=== PATIENT | male | born 1980 | race Hispanic/Latino ===

== ENCOUNTER 2022-12-18 06:46 | Observation (INO) | payer SELFPAY ==
[2022-12-18] MEDS ORDERED: METOPROLOL TAR 50 MG TAB ONE (07:47)
[2022-12-18] MEDS ORDERED: LORazepam 2 MG/ML VIAL ONE (07:48)
[2022-12-18] MEDS ORDERED: ASPIRIN 81 MG CHEWABLE TABLET ONE (07:48)
[2022-12-18] MEDS ORDERED: ONDANSETRON 4 MG/2 ML VIAL ONE (07:49)
[2022-12-18] MEDS ORDERED: NA CHLORIDE 0.9% 1,000 ML ONE (07:49)
[2022-12-18] MEDS ORDERED: MORPHINE 2 MG/ML SYR ONE (07:49)
--- NOTE | 2022-12-18 08:11 | RAD REPORT ---
EXAM DESCRIPTION: RAD - Chest Single View - 12/18/2022 7:57 am CLINICAL HISTORY: CHEST PAIN COMPARISON: No comparisons FINDINGS: Lines: None. Lungs: No evidence of edema or pneumonia. Pleural: No significant pleural effusions or pneumothorax. Cardiac: The heart size is within normal limits. Mediastinum: Within normal limits. Bones: No acute fractures. Other: None IMPRESSION: No acute cardiopulmonary disease.
[2022-12-18] MEDS ORDERED: ENOXAPARIN 80 MG/0.8 ML SQ ONE (08:39)
[2022-12-18 08:55] LABS: Absolute Lymphocytes (CBC) 0.5 K/uL (0.7-4.9); Hematocrit 50.3 % (39.6-49.0); Lymphocytes % 8.7 % (15.3-44.8); MCV 92.5 fL (80-100); MPV 7.2 fL (7.6-11.3); RBC Red Blood Cell Count 5.44 M/uL (4.33-5.43)
[2022-12-18 09:13] LABS: Urine Blood Trace-intact (Negative); Urine Glucose Negative (Negative); Urine Protein Negative (Negative)
[2022-12-18 09:20] LABS: ALT/SGPT 45 U/L (16-61); AST/SGOT 31 U/L (15-37); Albumin 3.3 g/dL (3.4-5.0); Alkaline Phosphatase 37 U/L (45-117); BUN Blood Urea Nitrogen 15 mg/dL (7-18); Bicarbonate 29 mmol/L (21-32); Bilirubin Direct 0.3 mg/dL (0-0.2); Bilirubin Total 1.1 mg/dL (0.2-1.0); Glomerular Filtration Rate 113 ml/min (=/>90); Glucose Level 100 mg/dL (74-106); Magnesium 2.1 mg/dL (1.6-2.4); NT PRO-BNP 22 pg/mL (<125); Potassium 4.3 mmol/L (3.5-5.1); Protein, Total 6.2 g/dL (6.4-8.2); Protime INR 1.05; Sodium Level 137 mmol/L (136-145); Troponin High Sensitivity 10.8 pg/mL (<58.9)
[2022-12-18 09:20] LABS: SARS-CoV-2 Antigen Rapid Res Negative (Negative)
[2022-12-18 10:08] LABS: Barbiturates NEGATIVE (NEGATIVE); Benzodiazepines NEGATIVE (NEGATIVE); Cocaine NEGATIVE (NEGATIVE); METHAMPHETAM POSITIVE (NEGATIVE); Methadone NEGATIVE (NEGATIVE); Opiates NEGATIVE (NEGATIVE); Phencyclidine NEGATIVE (NEGATIVE); THC Cannibis NEGATIVE (NEGATIVE)
--- NOTE | 2022-12-18 10:57 | EDPHYS ---
Physician Documentation [facility] Name: Fidel Santos Age: 42 yrs Sex: Male : 1980 Arrival Date: 12/18/2022 Time: 06:47 Bed 16 Private MD: ED Physician Robinson Carvalho HPI: 12/18 08:15 This 42 yrs old Male presents to ER via Ambulatory with complaints of Chest day Pain. 08:15 The patient or guardian reports chest pain that is located primarily in the anterior day chest wall, left. Onset: last night. The pain does not radiate. Associated signs and symptoms: Pertinent positives: shortness of breath. The chest pain is described as sharp. Duration: The patient or guardian reports multiple episodes, with no pattern. Modifying factors: The symptoms are alleviated by remaining still, the symptoms are aggravated by nothing. Severity of pain: At its worst the pain was moderate in the emergency department the pain is unchanged. The patient has not experienced similar symptoms in the past. Historical: - Allergies: 07:04 No Known Allergies; bb - Home Meds: 07:04 None [Active]; bb - PMHx: 07:04 None; bb - PSHx: 07:04 None; bb - Immunization history:: Client reports having NOT received the Covid vaccine. - Social history:: Smoking status: Patient denies any tobacco usage or history of. Patient uses street drugs, Methamphetamine (Meth). - Family history:: not pertinent. ROS: 08:15 Constitutional: Negative for fever, chills, and weight loss, Eyes: Negative for injury, day pain, redness, and discharge, ENT: Negative for injury, pain, and discharge, Neck: Negative for injury, pain, and swelling, Respiratory: Negative for shortness of breath, cough, wheezing, and pleuritic chest pain, Abdomen/GI: Negative for abdominal pain, nausea, vomiting, diarrhea, and constipation, Back: Negative for injury and pain, : Negative for injury, bleeding, discharge, and swelling, MS/Extremity: Negative for injury and deformity, Skin: Negative for injury, rash, and discoloration, Neuro: Negative for headache, weakness, numbness, tingling, and seizure, Psych: Negative for depression, anxiety, suicide ideation, homicidal ideation, and hallucinations, Allergy/Immunology: Negative for hives, rash, and allergies, Endocrine: Negative for neck swelling, polydipsia, polyuria, polyphagia, and marked weight changes, Hematologic/Lymphatic: Negative for swollen nodes, abnormal bleeding, and unusual bruising. 08:15 Cardiovascular: Positive for chest pain, of the anterior aspect of left upper chest and left breast. Exam: 08:15 Constitutional: This is a well developed, well nourished patient who is awake, alert, day and in no acute distress. Head/Face: Normocephalic, atraumatic. Eyes: Pupils equal round and reactive to light, extra-ocular motions intact. Lids and lashes normal. Conjunctiva and sclera are non-icteric and not injected. Cornea within normal limits. Periorbital areas with no swelling, redness, or edema. ENT: Nares patent. No nasal discharge, no septal abnormalities noted. Tympanic membranes are normal and external auditory canals are clear. Oropharynx with no redness, swelling, or masses, exudates, or evidence of obstruction, uvula midline. Mucous membranes moist. Neck: Trachea midline, no thyromegaly or masses palpated, and no cervical lymphadenopathy. Supple, full range of motion without nuchal rigidity, or vertebral point tenderness. No Meningismus. Chest/axilla: Normal chest wall appearance and motion. Nontender with no deformity. No lesions are appreciated. Respiratory: Lungs have equal breath sounds bilaterally, clear to auscultation and percussion. No rales, rhonchi or wheezes noted. No increased work of breathing, no retractions or nasal flaring. Abdomen/GI: Soft, non-tender, with normal bowel sounds. No distension or tympany. No guarding or rebound. No evidence of tenderness throughout. Back: No spinal tenderness. No costovertebral tenderness. Full range of motion. Male : Normal genitalia with no discharge or lesions. Skin: Warm, dry with normal turgor. Normal color with no rashes, no lesions, and no evidence of cellulitis. MS/ Extremity: Pulses equal, no cyanosis. Neurovascular intact. Full, normal range of motion. Neuro: Awake and alert, GCS 15, oriented to person, place, time, and situation. Cranial nerves II-XII grossly intact. Motor strength 5/5 in all extremities. Sensory grossly intact. Cerebellar exam normal. Normal gait. Psych: Awake, alert, with orientation to person, place and time. Behavior, mood, and affect are within normal limits. 08:15 Cardiovascular: Rate: tachycardic, actual rate is 110 bpm, Rhythm: regular, Pulses: Pulses are 4+ in bilateral radial, brachial, femoral, popliteal, posterior tibial and and dorsalis pedis arteries.. Heart sounds: normal, Edema: is not appreciated, JVD: is not appreciated. 08:15 ECG was reviewed by the Attending Physician. 08:48 ECG was reviewed by the Attending Physician. day 10:57 ECG was reviewed by the Attending Physician. day Vital Signs: 07:00 BP 126 / 83; Pulse 115; Resp 14 S; Temp 98.2(O); Pulse Ox 94% on R/A; Weight 72.57 kg bb (R); Height 5 ft. 5 in. (165.10 cm) (R); Pain 3/10; 07:58 BP 146 / 88; Pulse 110; Pulse Ox 94% on R/A; ap3 10:00 BP 141 / 96; Pulse 86; Pulse Ox 96% ; ap3 11:19 BP 150 / 109; Pulse 92; Resp 18; Pulse Ox 95% on R/A; ap3 12:58 BP 146 / 93; Pulse 86; Resp 18; Pulse Ox 97% on R/A; Pain 0/10; ld1 07:00 Body Mass Index 26.63 (72.57 kg, 165.10 cm) bb MDM: 07:10 Patient medically screened. day 08:18 Differential diagnosis: abnormal EKG, acute myocardial infarction, acute pericarditis, day anxiety, coronary artery disease chest wall pain, Cholelithiasis esophagitis, gastritis, hiatal hernia, pancreatitis, pleurisy, pneumonia, pneumothorax, pulmonary embolus, stable angina, thoracic aortic disection, unstable angina. HEART Score: History: Slightly Suspicious (0), ECG: Non specific repolarization disturbance / LBTB / PM (1), Age: < or = 45 years (0), Risk Factors: 1 or 2 risk factors (1), [+ Family HX] Troponin: < or = 1 x Normal Limit (0). The patient was given aspirin in the Emergency Department. LANDON Risk Score: TOTAL SCORE = 0. Data reviewed: vital signs, nurses notes, lab test result(s), EKG, radiologic studies, plain films. Consideration of Admission/Observation Patient was admitted/placed on observation. Management of patient was discussed with the following: Hospitalist: robbin mejia. Independent interpretation of the following test(s) in the Emergency Department EKG: See my EKG interpretation above Rhythm Strip Interpretation Rate: 105, sinus tachyBPM. Test considered but Not performed: CT: ct chest ro pe. 12/18 07:34 Order name: Basic Metabolic Panel [facility] 12/18 07:34 Order name: CBC with Diff [facility] 12/18 07:34 Order name: LFT's [facility] 12/18 07:34 Order name: Magnesium [facility] 12/18 07:34 Order name: NT PRO-BNP day 12/18 07:34 Order name: PT-INR [facility] 12/18 07:34 Order name: Troponin HS [facility] 12/18 07:34 Order name: Acetaminophen [facility] 12/18 07:34 Order name: ETOH Level [facility] 12/18 07:34 Order name: Ptt, Activated [facility] 12/18 07:34 Order name: Salicylate [facility] 12/18 07:34 Order name: Urine Drug Screen [facility] 12/18 08:20 Order name: D-Dimer [facility] 12/18 08:21 Order name: SARS RAPID [facility] 12/18 09:03 Order name: CBC with Automated Diff; Complete Time: 09:30 EDMS 12/18 09:13 Order name: Urine Dipstick-Ancillary; Complete Time: 09:30 EDMS 12/18 09:14 Order name: D-Dimer; Complete Time: 09:30 EDMS 12/18 09:20 Order name: Protime (+INR); Complete Time: 09:30 EDMS 12/18 09:20 Order name: PTT, Activated Partial Thromb; Complete Time: 09:30 EDMS 12/18 09:20 Order name: SARS-COV-2 Antigen Rapid; Complete Time: 09:30 EDMS 12/18 09:21 Order name: Basic Metabolic Panel; Complete Time: 09:59 EDMS 12/18 09:21 Order name: Liver (Hepatic) Function; Complete Time: 09:59 EDMS 12/18 09:21 Order name: Troponin High Sensitivity; Complete Time: 09:59 EDMS 12/18 09:21 Order name: NT PRO-BNP; Complete Time: 09:59 EDMS 12/18 09:21 Order name: Magnesium; Complete Time: 09:59 EDMS 12/18 09:45 Order name: Troponin High Sensitivity: [address] [facility] 12/18 09:51 Order name: Salicylates Level; Complete Time: 09:59 [facility] 12/18 09:53 Order name: Alcohol Serum/Plasma; Complete Time: 09:59 [facility] 12/18 09:54 Order name: Acetaminophen Level; Complete Time: 09:59 [facility] 12/18 10:08 Order name: Urine Drug Screen; Complete Time: 10:24 [facility] 12/18 07:34 Order name: XRAY Chest (1 view) [facility] 12/18 07:34 Order name: EKG; Complete Time: 07:36 [facility] 12/18 07:34 Order name: Cardiac monitoring; Complete Time: 07:35 [facility] 12/18 07:34 Order name: EKG - Nurse/Tech; Complete Time: 07:35 [facility] 12/18 07:34 Order name: IV Saline Lock; Complete Time: 07:35 [facility] 12/18 07:34 Order name: Labs collected and sent; Complete Time: 07:56 [facility] 12/18 07:34 Order name: O2 Per Protocol; Complete Time: 07:35 [facility] 12/18 07:34 Order name: O2 Sat Monitoring; Complete Time: 07:35 [facility] 12/18 07:34 Order name: Suicide Screening ([place]); Complete Time: 07:56 [facility] 12/18 07:34 Order name: Urine Dipstick-Ancillary (obtain specimen); Complete Time: 09:23 [facility] 12/18 07:59 Order name: Labs - recollect needed: all labs; Complete Time: 08:37 [facility] 12/18 08:12 Order name: RAD; Complete Time: 08:14 [facility] 12/18 10:55 Order name: EKG; Complete Time: 10:56 [facility] 12/18 10:55 Order name: EKG - Nurse/Tech; Complete Time: 11:03 [facility] 12/18 11:01 Order name: Troponin High Sensitivity; Complete Time: 11:10 [facility] 12/18 12:55 Order name: Hemoglobin A1c EDMS EC:15 Rate is 109 beats/min. Rhythm is regular. QRS [place] is Normal. ID interval is normal. day QRS interval is normal. QT interval is normal. No Q waves. T waves are Normal. No ST changes noted. Clinical impression: NSR w/ Non-specific ST/T Changes and No evidence of ischemia. Interpreted by me. Reviewed by me. 08:48 Rate is 116 beats/min. Rhythm is regular. QRS [place] is Normal. ID interval is normal. day QRS interval is normal. QT interval is normal. No Q waves. T waves are Normal. No ST changes noted. Clinical impression: Sinus tachycardia and No evidence of ischemia. Interpreted by me. Reviewed by me. 10:57 Rate is 91 beats/min. Rhythm is regular. QRS [place] is Normal. ID interval is normal. QRS day interval is normal. QT interval is normal. No Q waves. T waves are Normal. T waves are Peaked. No ST changes noted. Clinical impression: NSR w/ Non-specific ST/T Changes. Interpreted by me. Reviewed by me. Administered Medications: 07:50 Drug: NS 0.9% 1000 ml Route: IV; Rate: 1 bolus; Site: right antecubital; ap3 07:55 Drug: Aspirin Chewable Tablet 324 mg Route: PO; ap3 07:55 Drug: Ativan (LORazepam) 1 mg Route: IVP; Site: right antecubital; ap3 07:55 Drug: morphine 2 mg Route: IVP; Infused Over: 4 mins; Site: right antecubital; ap3 07:55 Drug: Zofran (Ondansetron) 4 mg Route: IVP; Site: right antecubital; ap3 07:58 Drug: Lopressor (metoprolol TARTRATE) 50 mg Route: PO; ap3 09:59 Not Given (Duplicate Order): Lovenox (enoxaparin) 70 mg Sub-Q once day 11:41 Drug: Lovenox (enoxaparin) 70 mg Route: Sub-Q; Site: abdomen; ld1 Disposition Summary: 12/18/22 10:56 Hospitalization Ordered Hospitalization Status: Observation day Provider: David Williamson cha Location: Telemetry/MedSurg (observation)(12/18/22 10:56) day Condition: Fair(12/18/22 10:56) day Problem: new(12/18/22 10:56) day Symptoms: have improved(12/18/22 10:56) day Bed/Room Type: Standard day Room Assignment: day Diagnosis - Chest pain, unspecified(12/18/22 10:56) day - Tachycardia, unspecified(12/18/22 10:56) day - Essential (primary) hypertension day - Adverse effect of amphetamines(12/18/22 10:56) day Forms: - Medication Reconciliation Form day - SBAR form day Signatures: Dispatcher [employer] Robinson Mccarty MD MD cha Ballard, Brenda RN RN Virginia Grijalva RN RN ap3 Shasha Carter RN RN ld1 Nina Jessica RN RN kc6 Corrections: (The following items were deleted from the chart) 10:55 10:55 Home day day 10:55 10:55 new day day 10:55 10:55 have improved day day 10:55 10:55 Stable day day 10:55 10:55 Chest pain, unspecified day day 10:55 10:55 Tachycardia, unspecified day day 10:55 10:55 Adverse effect of amphetamines day day 10:55 10:55 Abuse of other non-psychoactive substances - Methamphetamines day day
--- NOTE | 2022-12-18 10:57 | ER ---
Nurse's Notes [facility] Name: Fidel Santos Age: 42 yrs Sex: Male : 1980 Arrival Date: 12/18/2022 Time: 06:47 Bed 16 Private MD: Diagnosis: Chest pain, unspecified;Tachycardia, unspecified;Essential (primary) hypertension;Adverse effect of amphetamines Presentation: 12/18 07:00 Chief complaint: Patient states: he woke up this morning with chest pain 10/10 now it bb is 3/10 he also did some meth he came across a few days ago. Coronavirus screen: At this time, the client does not indicate any symptoms associated with coronavirus-19. Ebola Screen: No symptoms or risks identified at this time. Initial Sepsis Screen: Does the patient meet any 2 criteria? No. Patient's initial sepsis screen is negative. Does the patient have a suspected source of infection? No. Patient's initial sepsis screen is negative. Risk Assessment: Do you want to hurt yourself or someone else? Patient reports no desire to harm self or others. Onset of symptoms was December 18, 2022. 07:00 Method Of Arrival: Ambulatory bb 07:00 Acuity: NEHEMIAH 3 bb Historical: - Allergies: 07:04 No Known Allergies; bb - Home Meds: 07:04 None [Active]; bb - PMHx: 07:04 None; bb - PSHx: 07:04 None; bb - Immunization history:: Client reports having NOT received the Covid vaccine. - Social history:: Smoking status: Patient denies any tobacco usage or history of. Patient uses street drugs, Methamphetamine (Meth). - Family history:: not pertinent. Screenin:27 [facility] ED Fall Risk Assessment (Adult) History of falling in the last 3 months, ap3 including since admission No falls in past 3 months (0 pts). Abuse screen: Denies threats or abuse. Nutritional screening: No deficits noted. Tuberculosis screening: No symptoms or risk factors identified. Assessment: 07:27 General: Appears in no apparent distress. Behavior is calm, cooperative. Pain: Pain ap3 does not radiate. Pain began suddenly. Neuro: Level of Consciousness is awake, alert, obeys commands, Oriented to person, place, time, situation, Appropriate for age Gait is steady, Speech is normal. Cardiovascular: Patient's skin is warm and dry. Respiratory: Airway is patent Respiratory effort is even, unlabored, Respiratory pattern is regular, symmetrical. 07:54 Reassessment: spoke with Tamiko from outside lab. stated she needs a recollect on kc6 all labs. AGNIESZKA Morrison notified. 12:58 Reassessment: Patient is alert, oriented x 3, equal unlabored respirations, skin ld1 warm/dry/pink. Pt came out of room - requested to sign out. Educated patient on need for observation stay - pt decided to D/C own IV \\T\\ signed out AMA at this time. Notified ERP. Pt states "I feel much better, I am ready to leave.". Neuro: Level of Consciousness is awake, alert, obeys commands, Oriented to person, place, time, situation, Appropriate for age. Cardiovascular: Capillary refill < 3 seconds Patient's skin is warm and dry. Rhythm is sinus rhythm. Vital Signs: 07:00 BP 126 / 83; Pulse 115; Resp 14 S; Temp 98.2(O); Pulse Ox 94% on R/A; Weight 72.57 kg bb (R); Height 5 ft. 5 in. (165.10 cm) (R); Pain 3/10; 07:58 BP 146 / 88; Pulse 110; Pulse Ox 94% on R/A; ap3 10:00 BP 141 / 96; Pulse 86; Pulse Ox 96% ; ap3 11:19 BP 150 / 109; Pulse 92; Resp 18; Pulse Ox 95% on R/A; ap3 12:58 BP 146 / 93; Pulse 86; Resp 18; Pulse Ox 97% on R/A; Pain 0/10; ld1 07:00 Body Mass Index 26.63 (72.57 kg, 165.10 cm) bb ED Course: 06:47 Patient arrived in ED. [id number] 07:04 Triage completed. bb 07:04 Arm band placed on Patient placed in an exam room, on a stretcher, on pulse oximetry. bb EKG completed in triage. Results shown to . 07:05 Inserted saline lock: 20 gauge in right antecubital area, using aseptic technique. bc6 07:10 Robinson Carvalho MD is Attending Physician. day 07:26 Virginia Holman, RN is Primary Nurse. ap3 07:27 EKG done, by ED staff, reviewed by Robinson Carvalho MD. ap3 07:27 Patient maintains SpO2 saturation greater than 95% on room air. ap3 07:27 Patient has correct armband on for positive identification. Bed in low position. Call ap3 light in reach. Side rails up X 1. compactor driver on. Pulse ox on. NIBP on. Door closed. Noise minimized. 08:37 D-Dimer Sent. ap3 08:37 SARS RAPID Sent. ap3 10:56 David Williamson is Hospitalizing Provider. day 12:58 No provider procedures requiring assistance completed. Pt d/c own IV. Placed pressure ld1 dressing on IV site prior to leaving. Administered Medications: 07:50 Drug: NS 0.9% 1000 ml Route: IV; Rate: 1 bolus; Site: right antecubital; ap3 07:55 Drug: Aspirin Chewable Tablet 324 mg Route: PO; ap3 07:55 Drug: Ativan (LORazepam) 1 mg Route: IVP; Site: right antecubital; ap3 07:55 Drug: morphine 2 mg Route: IVP; Infused Over: 4 mins; Site: right antecubital; ap3 07:55 Drug: Zofran (Ondansetron) 4 mg Route: IVP; Site: right antecubital; ap3 07:58 Drug: Lopressor (metoprolol TARTRATE) 50 mg Route: PO; ap3 09:59 Not Given (Duplicate Order): Lovenox (enoxaparin) 70 mg Sub-Q once day 11:41 Drug: Lovenox (enoxaparin) 70 mg Route: Sub-Q; Site: abdomen; ld1 Medication: 07:28 VIS not applicable for this client. ap3 Outcome: 10:55 Discharge ordered by . day 10:56 Decision to Hospitalize by Provider. day 12:58 AMA AMA form signed ld1 12:58 Condition: unchanged 12:58 Instructed on the need for admit. 13:01 Patient left the ED. ld1 Signatures: Robinson Carvalho MD MD cha Ballard, Brenda, RN RN Virginia Grijalva RN RN ap3 Shasha Carter RN RN ld1 Caroline Nolasco6 Nina Jessica RN RN kc6 Marysol Garcia bc6 Corrections: (The following items were deleted from the chart) 13:01 12:58 Reassessment: Patient is alert, oriented x 3, equal unlabored respirations, skin ld1 warm/dry/pink. Pt came out of room - requested to sign out. Educated patient on need for observation stay - pt decided to D/C own IV \\T\\ signed out AMA at this time. Notified ERP ld1
[2022-12-18] MEDS ORDERED: ACETAMINOPHEN 325 MG TABLET PO PRN (11:42)
[2022-12-18] MEDS ORDERED: HYDROCODONE/APAP 5/325 MG TAB PO PRN (11:45)
[2022-12-18] MEDS ORDERED: ONDANSETRON 4 MG/2 ML VIAL IV PRN (11:49)
--- NOTE | 2022-12-18 12:05 | P.HP ---
Certification for Inpatient Patient admitted to: Observation With expected LOS: <2 Midnights Patient will require the following post-hospital care: None Practitioner: I am a practitioner with admitting privileges, knowledge of patient current condition, hospital course, and medical plan of care. Services: Services provided to patient in accordance with Admission requirements found in Title 42 Section 412.3 of the Code of Federal Regulations Patient History Date of Service: 12/18/22 Reason for admission: Chest pain History of Present Illness: Patient is a 42-year-old with a past medical history significant for significant for anxiety disorder, methamphetamine use who presents with complaint of chest pain that woke him up this morning. Patient reported that chest pain is located in the left chest wall. Patient rated pain as 10/10 in severity and described pain as burning in quality. Patient reported associated signs and symptoms of dizziness and headache. Patient denies any other signs and symptoms. Symptoms are aggravated or relieved by nothing. Patient decided to present to the hospital for medical evaluation. Of note, patient reported that he used methamphetamine in the last 2 days. Allergies No Known Allergies Allergy (Unverified 12/18/22 11:49) - Past Medical/Surgical History -: Anxiety disorder -: Methamphetamine use Past Surgical History: Reviewed- Non-Contributory - Family History Father -: Heart disease, Hypertension, Diabetes Mother -: Diabetes, Other (see notes) (Alzheimer's disease) - Social History Smoking Status: Never smoker Alcohol use: Yes CD- Drugs: Yes Caffeine use: Yes Place of Residence: Home Review of Systems General: Unremarkable Eyes: Unremarkable ENT: Unremarkable Respiratory: Unremarkable Cardiovascular: Chest Pain Gastrointestinal: Unremarkable Genitourinary: Unremarkable Musculoskeletal: Unremarkable Integumentary: Unremarkable Neurological: Other (Headache, dizziness) Lymphatics: Unremarkable Physical Examination - Physical Exam General: Alert, In no apparent distress, Oriented x3, Cooperative HEENT: Atraumatic, PERRLA, Mucous membr. moist/pink, EOMI, Sclerae nonicteric Neck: Supple, 2+ carotid pulse no bruit, No LAD, Without JVD or thyroid abnormality Respiratory: Clear to auscultation bilaterally, Normal air movement Cardiovascular: No edema, Normal S1 S2, No murmurs Capillary refill: <2 Seconds Gastrointestinal: Normal bowel sounds, Soft and benign, No tenderness Musculoskeletal: No clubbing, No swelling, No tenderness Integumentary: No rashes, No breakdown, No tenderness/swelling Neurological: Normal speech, Normal tone, Normal affect Lymphatics: No axilla or inguinal lymphadenopathy - Studies Laboratory Data (last 24 hrs) 12/18/22 08:35: PT 11.5, INR 1.05, APTT 24.9 12/18/22 08:35: WBC 5.60, Hgb 17.1, Hct 50.3 H, Plt Count 270 12/18/22 08:35: Sodium 137, Potassium 4.3, BUN 15, Creatinine 0.78, Glucose 100, Magnesium 2.1, Total Bilirubin 1.1 H, AST 31, ALT 45, Alkaline Phosphatase 37 L Assessment and Plan - Plan -- Chest pain. Likely atypical. Serial troponins negative so far. Cardiology consulted. Echocardiogram pending to assess cardiac structures and function. Telemetry to monitor for any significant arrhythmia. We will await further recommendation from pmo manager. --Anxiety disorder. Ativan as needed. --Tachycardia. Patient medicated with metoprolol. Echocardiogram pending to assess cardiac structures and functions. Telemetry to monitor for any significant arrhythmia. --Methamphetamine use. Patient counseled on drug cessation. Continue supportive care. -- DVT prophylaxis with Lovenox subQ. Discharge Plan: Home Plan to discharge in: 48 Hours - Advance Directives Does patient have a Living Will: No Does patient have a Durable POA for Healthcare: No - Code Status/Comfort Care Code Status Assessed: Yes Physician Review: Patient Assessed, Agree with Above Assessment and Plan Critical Care: No
[2022-12-18 13:16] VITALS: TEMP 98.2
[2022-12-18 13:20] VITALS: BP 146/93; O2SAT 97
--- NOTE | 2022-12-18 15:20 | EKG ---
Test Date: 2022-12-18 Test Time: 07:23:54 Wet Process Technician: ALP MEASUREMENT RESULTS: Intervals: Rate: 109 HI: 132 QRSD: 80 QT: 330 QTc: 444 [place]: P: 40 HI: 132 QRS: 31 T: 32 INTERPRETIVE STATEMENTS: Sinus tachycardia Otherwise normal ECG Compared to ECG 12/18/2022 06:58:06 No significant changes Electronically Signed On 12-18-22 15:19:09 INTERNAL SALES ENGINEER by Abdirashid Carias
--- NOTE | 2022-12-18 15:20 | EKG ---
Test Date: 2022-12-18 Test Time: 06:58:06 Doctor Of Naturopathic Medicine: TIFFANY MEASUREMENT RESULTS: Intervals: Rate: 116 VT: 128 QRSD: 78 QT: 324 QTc: 450 [place]: P: 42 VT: 128 QRS: 43 T: 50 INTERPRETIVE STATEMENTS: Sinus tachycardia Otherwise normal ECG No previous ECG available for comparison Electronically Signed On 12-18-22 15:19:10 TROLLEY CAR OPERATOR by Abdirashid Carias
[2022-12-18] MEDS ORDERED: ENOXAPARIN 40 MG/0.4 ML SQ SCH (17:00)
[2022-12-19] MEDS ORDERED: ASPIRIN 81 MG CHEWABLE TABLET PO SCH (09:00)
--- NOTE | 2022-12-20 13:24 | EKG ---
Test Date: 2022-12-18 Test Time: 10:49:14 Staple Laster: RAEGAN MEASUREMENT RESULTS: Intervals: Rate: 91 DE: 136 QRSD: 100 QT: 338 QTc: [address] [place]: P: DE: 136 QRS: 206 T: 180 INTERPRETIVE STATEMENTS: Normal sinus rhythm Right superior axis deviation Nonspecific ST and T wave abnormality Abnormal ECG Compared to ECG 12/18/2022 07:23:54 Right superior axis now present ST (T wave) deviation now present Sinus tachycardia no longer present Electronically Signed On 12-20-22 13:19:22 [employer] by Abdirashid Carias
== END 2022-12-18 13:02 | disposition left against medical advice (07) ==
LOC: ER 06:46 → ERHOLD 11:39
PROVIDERS: ADMIT Internal Medicine; ATTEND Internal Medicine
DX: R07.9 Chest pain, unspecified (principal); R00.0 Tachycardia, unspecified; F15.90 Other stimulant use, unspecified, uncomplicated; F41.9 Anxiety disorder, unspecified; R51.9 Headache, unspecified; R42 Dizziness and giddiness; I10 Essential (primary) hypertension; Z71.51 Drug abuse counseling and surveillance of drug abuser; Z20.822 Contact with and (suspected) exposure to COVID-19
CPT/HCPCS: 36415; 71045; 80048; 80061; 80076; 80307; 81003; 83036; 83735; 83880; 84484; 85025; 85379; 85610; 85730; 87811; 93005; 96372; 96374; 96375; 99285; G0378; G0480; J1650; J2270; J2405; J7030

== ENCOUNTER 2023-05-28 20:58 | Emergency (ER) | payer SELFPAY ==
--- OUTSIDE RECORDS SUMMARY | 2023-05-28 21:02 | XMS REPORT | Continuity of Care Document ---
:1980 Author Organization [facility] t Address [address] [place] [address] Care Team Providers Name Role Phone Yin Citlali AARON Attending Clinician Unavailable Ginny Rivera MD Attending Clinician GINNY RIVERA Attending Clinician Unavailable CARROL RIDLEY Attending Clinician Unavailable GINNY RIVERA Admitting Clinician Unavailable Problems Condition Condition Condition Status Onset Resolution Last Treating Co mments Source Name Details Category Date Date Treatment Clinician Date STEMI (ST STEMI (ST Disease Recurre [facility] elevation elevation nce 03-03 [facility] myocardial myocardial 00:00: Me dical infarction infarction 00 Ce nter ) ) Allergies, Adverse Reactions, Alerts Allergy Allergy Status Severity Reaction(s) Onset Inactive Treating Comm ents Source Name Type Date Date Clinician NO KNOWN Allergy Active [facility] Social History Social Habit Start Date Stop Date Quantity Comments Source Sex Assigned At [address] [facility] Medications Ordered Filled Start Stop Current Ordering Indication Dosage Frequency Signature Comments Components Source Medication Medication Date Date Medication? Clinician (SIG) Name Name amLODIPine 2023- Yes 5mg QD Take [address] [facility] (NORVASC) 5 03-04 tablet (5 Diana kes MG tablet 00:00: 23:59 mg total) Me dical 00 :00 by mouth Center in the morning. atorvastati 2023- Yes 40mg QD Take [address] [facility] n (LIPITOR) 03-04 tablet (40 L ukes 40 MG 00:00: 23:59 mg total) Medica l tablet 00 :00 by mouth Center in the morning. aspirin 81 2023- Yes 81mg QD Take [address] [facility] [address] [facility] EC 03-04 tablet (81 [facility] tablet 00:00: 23:59 mg total) Medic al 00 :00 by mouth Center in the morning. clopidogreL 2023- Yes 75mg QD Take [address] [facility] (PLAVIX) 75 03-04 tablet (75 L ukes mg tablet 00:00: 23:59 mg total) Me dical 00 :00 by mouth Center in the morning. . Vital Signs Vital Name Observation Time Observation Value Comments Source HEIGHT 2023-03-03 12:14:00 165.1 cm WEIGHT 2023-03-03 12:14:00 72.576 kg HEIGHT 2023-03-03 12:14:00 165.1 cm WEIGHT 2023-03-03 12:14:00 72.576 kg HEIGHT 2023-03-03 12:14:00 165.1 cm WEIGHT 2023-03-03 12:14:00 72.576 kg Systolic blood 2023-03-04 19:00:00 109 mm[Hg] [facility] Diastolic blood 2023-03-04 19:00:00 58 mm[Hg] [facility] S t [facility] Heart rate 2023-03-04 19:00:00 88 /min [facility] Body temperature 2023-03-04 19:00:00 37.11 Shilpa [facility] Respiratory rate 2023-03-04 19:00:00 18 /min [facility] Oxygen saturation in 2023-03-04 19:00:00 94 /min [facility] Arterial blood by Medical Ce nter Pulse oximetry Body weight 2023-03-03 12:14:00 72.576 kg [facility] BMI 2023-03-03 12:14:00 26.63 kg/m2 [facility] Body height 2023-03-03 12:14:00 165.1 cm [facility] Procedures Procedure Date / Time Performed Performing Clinician [facility] e 2D ECHO W/ DOPPLER 2023-03-04 12:28:46 Nick [facility] (CW/PW/COLOR) [facility] LIPID PANEL 2023-03-04 04:28:00 NickGinny [facility] TSH/FREE T4 IF INDICATED 2023-03-04 04:28:00 Cut BankGinny [facility] BASIC METABOLIC PANEL 2023-03-03 17:31:00 [facility] CBC (HEMOGRAM ONLY) 2023-03-03 17:31:00 [facility] B-TYPE NATRIURETIC 2023-03-03 17:31:00 [facility] FACTOR (BNP) [facility] HIGH SENSITIVITY 2023-03-03 17:31:00 [facility] TROPONIN [facility] PROTHROMBIN TIME/INR 2023-03-03 17:31:00 [facility] LIPID PANEL 2023-03-03 17:31:00 [facility] HEMOGLOBIN A1C 2023-03-03 17:31:00 [facility] XR CHEST 1 VIEW PORTABLE 2023-03-03 15:43:00 [facility] / BEDSIDE [facility] CATHETERIZATION, HEART, 2023-03-03 12:08:00 Ginny Rivera [facility] LEFT, WITH PERCUTANEOUS [facility] CORONARY INTERVENTION VASCULAR DIAGRAM -SCAN 2023-03-03 00:00:00 ProviderDipak [facility] CARDIAC CATH REPORT - 2023-03-03 00:00:00 ProviderDipak [facility] EKG-SCANNED 2023-03-03 00:00:00 Provider, Default [facility] N[facility] Plan of Care Planned Activity Planned Date Details Comments Source Future Scheduled 2026-03-04 Lipid panel (procedure) [facility] Test 00:00:00 [code = 12313962] Medical Ce nter Future Scheduled 2023-06-27 Influenza Vaccine (#1) [facility] 00:00:00 [code = Influenza Vaccine Me dical Center (#1)] Future Scheduled 2022-10-[address] [facility] Test 00:00:00 (12+) [code = DEPRESSION Med ical Center SCREENING (12+)] Future Scheduled 1998 DTAP/TDAP/TD VACCINES ([address] [facility] Test 00:00:00 - Tdap) [code = Medical Cent er DTAP/TDAP/TD VACCINES (1 - Tdap)] Future Scheduled 1997 HEPATITIS C SCREENING [facility] 00:00:00 [code = HEPATITIS C Medical Center SCREENING] Future Scheduled 1994 Human immunodeficiency [facility] Test 00:00:00 virus screening Medical Cent er (procedure) [code = 778372411] Future Scheduled [address] [facility] Test 00:00:00 Counseling and Screening Med ical Center (12+) [code = Tobacco Cessation Counseling and Screening (12+)] Future Scheduled 1980-06-01 COVID-19 VACCINE (#1) [facility] 00:00:00 [code = COVID-19 VACCINE Med ical Center (#1)] Encounters Start End Encounter Admission Attending Care Care Encounter Source Date/Time Date/Time Type Type Clinicians Facility Department ID 2023-03-12 2023-03-12 Documentat Federico [facility] [id number] 00:[facility]00 00:00:[address] [facility] 2023-03-03 2023-03-04 Hospital Nick [facility] [id number] 17:34:00 19:46:00 [facility] 2023-03-04 Inpatient ER [facility] Surgery [id number] [facility] 17:34:00 19:46:00 GINNY 2023-03-03 2023-03-03 Surgery Nick, [facility] [id number] 12:35:00 14:25:00 [facility] 2023-03-03 2023-03-03 Emergency ER [facility] [id number] [place] 09:09:00 11:35:00 CARROL -[id number] [facility] 2023-03-03 2023-03-03 emergency [id number] 09:09:00 11:35:00 [id number] Results Test Description Test Time Test Comments Results Result Sourc e Comments 2D Echo 2023-03-04 Ejection [facility] W/Doppler(CW/PW/C 15:58:51 [facility] ECHO Medical olor) HEARTLAB [facility] HEMOGLOBIN A1C 2023-03-04 10:27:40 Test Item Value Reference Range Interpretation Comme nts HEMOGLOBIN A1C ELECTROPHORESIS 4.8 % See_Comment [Automated message] The system ([employer]) (test code = 3811) which generated this result transmitted ref erence range: <=5.6%. The ref erence range was not used to int erpret this result as normal/abnor mal. "The A1c is measured using a NGSP-certified method. HbA1c value equal to or greater than 6.5% as thediagnosis cutoff for diabetes. An HbA1c value of 5.7- 6.4% indicates increased risk for diabetes (prediabetes)."Unit Clerk ID - ADM TSH/FREE T4 IF [id number] 05:21:48 Test Item Value Reference Range Interpretation Comments THYROID STIMULATING HORMONE 1.963 uIU/mL 0.350-4.940 (Conject) (test code = 772) Unit Clerk ID - MMLIPID [id number] 05:09:12 Test Item Value Reference Range Interpretation Comments TRIGLYCERIDES ([facility]) 78 mg/dL Speci men slightly (test code = 540) hemolyzed CHOLESTEROL ([facility]) 150 mg/dL Specime n slightly (test code = 631) hemolyzed HDL CHOLESTEROL (BEAKER) 30 mg/dL (test code = 976) LDL CHOLESTEROL 104 mg/dL CALCULATED (sifonrAKER) (test code = 633) Triglyceride Reference Range: Low Risk <150 Borderline 150-199 High Risk 200- 499 Very High Risk >=500Cholesterol Reference Range: Low Risk <200 Borderline 200-239 High Risk >240HDL Cholesterol Reference Range: Low Risk >=60 High Risk <40LDL Cholesterol Reference Range: Optimal <100 Near Optimal 100-129 Borderline 130-159 High 160-189 Very High >=190 Unit Clerk ID - MMSpecimen slightly ictericRAD, CHEST, 1 VIEW, NON [id number] 21:22:00Reason for exam:->[facility] 1980 Sex: MFINAL REPORT TECHNIQUE: Frontal view of the chest. INDICATION: STEMI. COMPARISON: None. FINDINGS: LINES/TUBES: None. HEART AND MEDIASTINUM: Cardiomediastinal contour is within normal limits. LUNGS: The lungs are well inflated and clear. No consolidation or pulmonary edema. PLEURA: No pneumo thorax. No significant pleural effusion. SOFT TISSUES AND BONES: Unremarkable. IMPRESSION:No acute cardiopulmonary process. Signed: Cyndee Thurston MDReport Verified Date/Time: 03/03/2023 21:22:07 HIGH SENSITIVITY TROPONIN I 2023-03-03 18:07:11 Test Item Value Reference Range Interpretation Comments HIGH SENSITIVITY TROPONIN I (test 13 pg/ml <=35 code = 7655048) Unit Clerk ID - BSThe TAXICAB DISPATCHER STAT High Sensitivity Troponin-I results should be used in conjunctionwith other diagnostic information such as ECG, clinical observations and information, and patient symptoms to aid in the diagnosis of SC.B-TYPE NATRIURETIC FACTOR (BNP)2023-03-03 18:07:04 Test Item Value Reference Range Interpretation Comments B-TYPE NATRIURETIC PEPTIDE (BEAKER) < pg/mL 0-100 (test code = 700) Unit Clerk ID - BSLIPID [id number] 18:00:50 Test Item Value Reference Range Interpretation Comments TRIGLYCERIDES (BEAKER) 78 mg/dL Speci men slightly (test code = 540) hemolyzed CHOLESTEROL (BEAKER) 156 mg/dL Specime n slightly (test code = 631) hemolyzed HDL CHOLESTEROL (BEAKER) 32 mg/dL (test code = 976) LDL CHOLESTEROL 108 mg/dL CALCULATED (BEAKER) (test code = 633) Triglyceride Reference Range: Low Risk <150 Borderline 150-199 High Risk 200- 499 Very High Risk >=500Cholesterol Reference Range: Low Risk <200 Borderline 200-239 High Risk >240HDL Cholesterol Reference Range: Low Risk >=60 High Risk <40LDL Cholesterol Reference Range: Optimal <100 Near Optimal 100-129 Borderline 130-159 High 160-189 Very High >=190 Unit Clerk ID - BSSpecimen slightly ictericBASIC METABOLIC [id number] 18:00:49 Test Item Value Reference Range Interpretation Comments SODIUM (BEAKER) 135 meq/L 136-145 L (test code = 381) POTASSIUM 4.6 meq/L 3.5-5.1 Specimen slight ly (BEAKER) (test hemolyzed code = 379) CHLORIDE (BEAKER) 103 meq/L 98-107 (test code = 382) CO2 (BEAKER) 22 meq/L 22-29 (test code = 355) BLOOD UREA 10 mg/dL 7-21 NITROGEN (BEAKER) (test code = 354) CREATININE 0.73 mg/dL 0.57-1.25 Specimen slight ly (BEAKER) (test hemolyzed code = 358) GLUCOSE RANDOM 83 mg/dL 70-105 (BEAKER) (test code = 652) CALCIUM (BEAKER) 9.3 mg/dL 8.4-10.2 (test code = 697) EGFR (BEAKER) 116 Interpretatio n of eGFR (test code = mL/min/1.73 values Stage De scription 1092) sq m Result G1 Dayan l or high >=90 G2 Mildly decreased 60-89 G3a Mildl y to moderately 45-5 9 G3b Moderately to s everely 30-44 G4 Severl y decreased 15-29 G5 Kidney failure <15Reported eGF R is based on the CKD-EPI 2020 equation that d oes not use a race coefficientEsti mated GFR is not as accur ate as Creatinine Gauri ceasar in predicting glom erular filtration rate . Estimated GFR is not appl icable for dialysis patien ts Unit Clerk ID - BSSpecimen slightly ictericPROTHROMBIN [id number] 17:58:45 Test Item Value Reference Range Interpretation Comments PROTIME (BEAKER) (test code = 14.9 seconds 11.9-14.2 H 759) INR (BEAKER) (test code = 370) 1.24 <=5.90 RECOMMENDED COUMADIN/WARFARIN INR THERAPY RANGESSTANDARD DOSE: 2.0 - 3.0 Includes: PROPHYLAXIS for venous thrombosis, systemic embolization; TREATMENT for venous thrombosis and/or pulmonary embolus.HIGH RISK: Target INR is 2.5-3.5 for patients with mechanical heart valves.CBC (HEMOGRAM ONLY)2023-03-03 17:50:02 Test Item Value Reference Range Interpretation Comments WHITE BLOOD CELL COUNT (BEAKER) 7.2 K/ L 3.5-10.5 (test code = 775) RED BLOOD CELL COUNT (BEAKER) 6.26 M/ L 4.63-6.08 H (test code = 761) HEMOGLOBIN (BEAKER) (test code = 19.1 GM/DL 13.7-17.5 H 410) HEMATOCRIT (BEAKER) (test code = 54.0 % 40.1-51.0 H 411) MEAN CORPUSCULAR VOLUME (BEAKER) 86 fL 79-92 (test code = 753) MEAN CORPUSCULAR HEMOGLOBIN 30.5 pg 25.7-32.2 (BEAKER) (test code = 751) MEAN CORPUSCULAR HEMOGLOBIN CONC 35.4 GM/DL 32.3-36.5 (BEAKER) (test code = 752) RED CELL DISTRIBUTION WIDTH 13.9 % 11.6-14.4 (BEAKER) (test code = 412) PLATELET COUNT (BEAKER) (test 239 K/CU MM 150-450 code = 756) MEAN PLATELET VOLUME (BEAKER) 8.9 fL 9.4-12.4 L (test code = 754) NUCLEATED RED BLOOD CELLS 0 /100 WBC 0-0 (BEAKER) (test code = 413)
[2023-05-28] MEDS ORDERED: ASPIRIN 81 MG CHEWABLE TABLET ONE (21:45)
[2023-05-28 21:46] LABS: Absolute Lymphocytes (CBC) 0.8 K/uL (0.7-4.9); Hematocrit 58.6 % (39.6-49.0); Lymphocytes % 6.4 % (15.3-44.8); MCV 92.9 fL (80-100); MPV 7.7 fL (7.6-11.3); RBC Red Blood Cell Count 6.31 M/uL (4.33-5.43)
[2023-05-28] MEDS ORDERED: NITROGLYCERIN 0.4 MG/TAB SL ONE (21:46)
[2023-05-28] MEDS ORDERED: NA CHLORIDE 0.9% 1,000 ML ONE (21:46)
[2023-05-28] MEDS ORDERED: LORazepam 2 MG/ML VIAL ONE (21:46)
[2023-05-28 22:04] LABS: Albumin 3.8 g/dL (3.4-5.0); Bilirubin Direct 0.4 mg/dL (0-0.2); Bilirubin Indirect, Calculated 1.4 mg/dL (0.2-0.8); Bilirubin Total 1.8 mg/dL (0.2-1.0); Magnesium 2.2 mg/dL (1.6-2.4); Potassium 3.5 mEq/L (3.5-5.1); Protein, Total 7.2 g/dL (6.4-8.2); Thyroid Stimulating Hormone 3.6 uIU/mL (0.358-3.740); Troponin High Sensitivity 14.9 pg/mL (<58.9)
--- NOTE | 2023-05-28 22:16 | RAD REPORT ---
EXAM DESCRIPTION: RAD - Chest Single View - 05/28/2023 9:58 pm CLINICAL HISTORY: CHEST PAIN Chest pain. COMPARISON: Chest Single View dated 12/18/2022 FINDINGS: Portable technique limits examination quality. The lungs are grossly clear. The heart is normal in size. No displaced fractures. IMPRESSION: No acute intrathoracic process suspected.
--- NOTE | 2023-05-29 00:28 | ER ---
Nurse's Notes [facility] Jaciel Name: Fidel Santos Age: 42 yrs Sex: Male : 1980 Arrival Date: 05/28/2023 Time: 20:58 Bed 3 Private MD: Diagnosis: Chest pain, unspecified;Adverse effect of amphetamines Presentation: 05/28 21:08 Chief complaint: Patient states: chest pain X 2 hours. Coronavirus screen: At this iw time, the client does not indicate any symptoms associated with coronavirus-19. Ebola Screen: Patient negative for fever greater than or equal to 101.5 degrees Fahrenheit, and additional compatible Ebola Virus Disease symptoms Patient denies exposure to infectious person. Patient denies travel to an Ebola-affected area in the 21 days before illness onset. No symptoms or risks identified at this time. Initial Sepsis Screen: Does the patient meet any 2 criteria? No. Patient's initial sepsis screen is negative. Does the patient have a suspected source of infection? No. Patient's initial sepsis screen is negative. Risk Assessment: Do you want to hurt yourself or someone else? Patient reports no desire to harm self or others. Onset of symptoms was May 28, 2023. 21:08 Method Of Arrival: Ambulatory iw 21:08 Acuity: NEHEMIAH 3 iw Historical: - Allergies: 21:10 No Known Allergies; iw - Immunization history:: Adult Immunizations up to date. - Social history:: Smoking status: unknown. - Family history:: not pertinent. Screenin:34 [facility] ED Fall Risk Assessment (Adult) History of falling in the last 3 months, kd3 including since admission No falls in past 3 months (0 pts) Confusion or Disorientation Intoxicated or Sedated No (0 pts) Impaired Gait No (0 pts) Mobility Assist Device Used No (0 pt) Altered Elimination No (0 pt) Score/Fall Risk Level 0 - 2 = Low Risk Maintained a safe environment. Abuse screen: Denies threats or abuse. Denies injuries from another. 23:58 Nutritional screening: No deficits noted. kd3 23:59 Tuberculosis screening: No symptoms or risk factors identified. kd3 Assessment: 21:43 General: Appears in no apparent distress. Behavior is calm, cooperative. Pain: kd3 Complains of pain in chest Pain does not radiate. Pain began gradually. Neuro: Level of Consciousness is awake, alert, obeys commands, Oriented to person, place, time, situation. Cardiovascular: Patient's skin is warm and dry. Respiratory: Airway is patent Trachea midline Respiratory effort is even, unlabored, Respiratory pattern is regular, symmetrical. 23:34 Reassessment: Patient and/or family updated on plan of care and expected duration. Pain kd3 level reassessed. Patient is alert, oriented x 3, equal unlabored respirations, skin warm/dry/pink. Patient states feeling better. Patient states symptoms have improved. Vital Signs: 21:08 Pulse 113; Resp 16; Temp 98.4; iw 21:13 BP 161 / 96; Pulse 117; Resp 17; Pulse Ox 95% on R/A; mc5 21:43 BP 149 / 86; Pulse 119; Resp 19; Pulse Ox 94% on R/A; kd3 22:03 BP 130 / 73; Pulse 107; Resp 19; Pulse Ox 95% on R/A; kd3 22:03 Pain 5/10; kd3 22:44 BP 141 / 96; Pulse 103; Resp 18; Pulse Ox 95% on R/A; kd3 23:34 BP 151 / 95; Pulse 104; Resp 16; Pulse Ox 96% on R/A; kd3 23:40 BP 147 / 99; Pulse 101; Resp 16; Pulse Ox 95% on R/A; kd3 23:58 BP 135 / 95; Pulse 94; Resp 18; Pulse Ox 95% ; kd3 22:03 Pain Scale: Adult kd3 ED Course: 21:08 Patient arrived in ED. iw 21:09 Triage completed. iw 21:10 Yung Riley MD is Attending Physician. rt 21:20 Jen Canchola, AGNIESZKA is Primary Nurse. kd3 21:32 Troponin HS Sent. kd3 21:32 NT PRO-BNP Sent. kd3 21:32 Magnesium Sent. kd3 21:32 LFT's Sent. kd3 21:32 D-Dimer Sent. kd3 21:32 CBC with Diff Sent. kd3 21:32 Basic Metabolic Panel Sent. kd3 21:32 TSH Sent. kd3 21:32 Inserted saline lock: 20 gauge in right antecubital area, using aseptic technique. kd3 Blood collected. 22:01 XRAY Chest (1 view) In Process Unspecified. EDMS 23:33 Troponin High Sensitivity Sent. kd3 23:58 Arm band placed on right wrist. kd3 23:58 Patient has correct armband on for positive identification. Provided Education on: . kd3 Client placed on continuous cardiac and pulse oximetry monitoring. NIBP monitoring applied. distribution clerk on. 23:59 No provider procedures requiring assistance completed. Patient maintains SpO2 kd3 saturation greater than 95% on room air. 05/29 00:27 Abdirashid Carias MD is Referral Physician. rt 00:35 IV discontinued, intact, bleeding controlled, No redness/swelling at site. Pressure ll3 dressing applied. Administered Medications: 05/28 21:42 Drug: Aspirin PO Chewable Tablet 324 mg Route: PO; kd3 21:42 Drug: NS 0.9% IV 1000 ml Route: IV; Rate: 1 bolus; Site: right antecubital; kd3 23:40 Follow up: IV Status: Completed infusion; IV Intake: 1000ml kd3 21:42 Drug: Nitroglycerin Sublingual 0.4 mg Route: Sublingual; kd3 21:42 Drug: Ativan IVP 1 mg Route: IVP; Site: right antecubital; kd3 22:44 Follow up: Response: No adverse reaction; Anxiety decreased kd3 22:03 Drug: Nitroglycerin Sublingual 0.4 mg Route: Sublingual; kd3 22:44 Follow up: Response: No adverse reaction; Pain is decreased kd3 Medication: 23:59 VIS not applicable for this client. kd3 Intake: 23:40 IV: 1000ml; Total: 1000ml. kd3 Outcome: 05/29 00:27 Discharge ordered by MD. rt 00:35 Discharged to home ambulatory. ll3 00:35 Condition: stable 00:35 Discharge instructions given to patient, Instructed on discharge instructions, follow up and referral plans. Demonstrated understanding of instructions, follow-up care. 00:35 Patient left the ED. ll3 Signatures: Dispatcher [employer] EDMS Li Grimes RN RN iw Loubet, Lynsea, RN RN ll3 Doucette, Kyli, RN RN kd3 Yung Riley MD MD rt Cahoon, Moriah mc5 Corrections: (The following items were deleted from the chart) 05/28 21:14 21:13 BP 161 / 96; Pulse 177bpm; Resp 19bpm; Pulse Ox 95% RA; mc5 mc5 21:14 21:13 BP 161 / 96; Pulse 117bpm; Resp 19bpm; Pulse Ox 95% RA; mc5 mc5
--- NOTE | 2023-05-29 00:28 | EDPHYS ---
Physician Documentation [facility] Name: Fidel Santos Age: 42 yrs Sex: Male : 1980 Arrival Date: 05/28/2023 Time: 20:58 Bed 3 Private MD: ED Physician Yung Riley HPI: 05/29 01:29 This 42 yrs old Male presents to ER via Ambulatory with complaints of Chest rt Pain. 01:29 . Patient presents to the ED with a substernal chest pain started about 2 hours prior rt to arrival. 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 The patient denies other acute complaints at this time. Denies aggravating or alleviating factors. Symptoms are aching nature, nonradiating, moderate severity.. Historical: - Allergies: 05/28 21:10 No Known Allergies; iw - Immunization history:: Adult Immunizations up to date. - Social history:: Smoking status: unknown. - Family history:: not pertinent. ROS: 05/29 01:29 Constitutional: Negative for fever, chills, and weight loss, Respiratory: Negative for rt shortness of breath, cough, wheezing, and pleuritic chest pain, Abdomen/GI: Negative for abdominal pain, nausea, vomiting, diarrhea, and constipation, MS/Extremity: Negative for injury and deformity, Skin: Negative for injury, rash, and discoloration, Neuro: Negative for headache, weakness, numbness, tingling, and seizure, Psych: Negative for depression, anxiety, suicide ideation, homicidal ideation, and hallucinations. Cardiovascular: Positive for chest pain, Negative for edema. Exam: 01:29 Constitutional: This is a well developed, well nourished patient who is awake, alert, rt and in no acute distress. Head/Face: Normocephalic, atraumatic. Chest/axilla: Normal chest wall appearance and motion. Nontender with no deformity. No lesions are appreciated. Cardiovascular: Regular rate and rhythm with a normal S1 and S2. No gallops, murmurs, or rubs. Normal PMI, no JVD. No pulse deficits. Respiratory: Lungs have equal breath sounds bilaterally, clear to auscultation and percussion. No rales, rhonchi or wheezes noted. No increased work of breathing, no retractions or nasal flaring. Abdomen/GI: Soft, non-tender, with normal bowel sounds. No distension or tympany. No guarding or rebound. No evidence of tenderness throughout. Skin: Warm, dry with normal turgor. Normal color with no rashes, no lesions, and no evidence of cellulitis. MS/ Extremity: Pulses equal, no cyanosis. Neurovascular intact. Full, normal range of motion. Neuro: Awake and alert, GCS 15, oriented to person, place, time, and situation. Cranial nerves II-XII grossly intact. Motor strength 5/5 in all extremities. Sensory grossly intact. Cerebellar exam normal. Normal gait. Psych: Awake, alert, with orientation to person, place and time. Behavior, mood, and affect are within normal limits. 01:29 ECG was reviewed by the Attending Physician. Vital Signs: 05/28 21:08 Pulse 113; Resp 16; Temp 98.4; iw 21:13 BP 161 / 96; Pulse 117; Resp 17; Pulse Ox 95% on R/A; mc5 21:43 BP 149 / 86; Pulse 119; Resp 19; Pulse Ox 94% on R/A; kd3 22:03 BP 130 / 73; Pulse 107; Resp 19; Pulse Ox 95% on R/A; kd3 22:03 Pain 5/10; kd3 22:44 BP 141 / 96; Pulse 103; Resp 18; Pulse Ox 95% on R/A; kd3 23:34 BP 151 / 95; Pulse 104; Resp 16; Pulse Ox 96% on R/A; kd3 23:40 BP 147 / 99; Pulse 101; Resp 16; Pulse Ox 95% on R/A; kd3 23:58 BP 135 / 95; Pulse 94; Resp 18; Pulse Ox 95% ; kd3 22:03 Pain Scale: Adult kd3 MDM: 21:12 Patient medically screened. rt 05/29 01:29 Differential diagnosis: Methamphetamine abuse, pneumonia, pneumothorax, acute coronary rt syndrome, pulmonary embolism. HEART Score: History: Moderately Suspicious (1), ECG: Non specific repolarization disturbance / LBTB / PM (1), Age: < or = 45 years (0), Risk Factors: 1 or 2 risk factors (1), Troponin: < or = 1 x Normal Limit (0), Total Score = 3. The patient was not given aspirin in the Emergency Department. Patient reports taking aspirin within the past 24 hours. Data reviewed: vital signs, nurses notes, lab test result(s), EKG, radiologic studies. Consideration of Admission/Observation Escalation of care including admission/observation considered. I considered the following discharge prescriptions or medication management in the emergency department Medications were administered in the Emergency Department. See MAR. Independent interpretation of the following test(s) in the Emergency Department X-Ray: My interpretation is No consolidation seen on interpretation of the chest x-ray images. Test considered but Not performed: CT: Negative D-dimer, CT angiogram not indicated. Counseling: I had a detailed discussion with the patient and/or guardian regarding: the historical points, exam findings, and any diagnostic results supporting the discharge/admit diagnosis, lab results, radiology results, the need for outpatient follow up. Response to treatment: the patient's symptoms have resolved after treatment. ED course: Patient with 2 negative troponins, resolved symptoms. Patient is desirous of discharge, believe that is safe to discharge patient at this time, was instructed to follow-up with cardiology. Patient to return if his symptoms return or for any new concerning symptoms.. 05/28 21:16 Order name: Basic Metabolic Panel; Complete Time: 22:23 rt 05/28 21:16 Order name: CBC with Diff; Complete Time: 22:23 rt 05/28 21:16 Order name: D-Dimer; Complete Time: 22:48 rt 05/28 21:16 Order name: LFT's; Complete Time: 22:23 rt 05/28 21:16 Order name: Magnesium; Complete Time: 22:23 rt 05/28 21:16 Order name: NT PRO-BNP; Complete Time: 22:23 rt 05/28 21:16 Order name: Troponin HS; Complete Time: 22:23 rt 05/28 21:16 Order name: TSH; Complete Time: 22:23 rt 05/28 23:26 Order name: Troponin High Sensitivity; Complete Time: 00:25 ll3 05/28 21:16 Order name: XRAY Chest (1 view); Complete Time: 22:23 rt 05/28 21:16 Order name: EKG; Complete Time: 21:17 rt 05/28 21:16 Order name: Cardiac monitoring; Complete Time: 21:19 rt 05/28 21:16 Order name: EKG - Nurse/Tech; Complete Time: 21:19 rt 05/28 21:16 Order name: IV Saline Lock; Complete Time: :32 rt 08 21:16 Order name: Labs collected and sent; Complete Time: :32 rt 05/28 21:16 Order name: O2 Per Protocol; Complete Time: :32 rt 05/28 21:16 Order name: O2 Sat Monitoring; Complete Time: 21:32 rt EC:29 Rate is 119 beats/min. Rhythm is regular, Sinus tachycardia with No ectopy, lafb. QRS rt [place] is Normal. ME interval is normal. QRS interval is normal. QT interval is normal. No Q waves. T waves are Normal. No ST changes noted. Interpreted by me. Administered Medications: 05/28 21:42 Drug: Aspirin PO Chewable Tablet 324 mg Route: PO; kd3 21:42 Drug: NS 0.9% IV 1000 ml Route: IV; Rate: 1 bolus; Site: right antecubital; kd3 23:40 Follow up: IV Status: Completed infusion; IV Intake: 1000ml kd3 21:42 Drug: Nitroglycerin Sublingual 0.4 mg Route: Sublingual; kd3 21:42 Drug: Ativan IVP 1 mg Route: IVP; Site: right antecubital; kd3 22:44 Follow up: Response: No adverse reaction; Anxiety decreased kd3 22:03 Drug: Nitroglycerin Sublingual 0.4 mg Route: Sublingual; kd3 22:44 Follow up: Response: No adverse reaction; Pain is decreased kd3 Disposition Summary: 05/29/23 00:27 Discharge Ordered Location: Home rt Problem: new rt Symptoms: are resolved rt Condition: Stable rt Diagnosis - Chest pain, unspecified rt - Adverse effect of amphetamines rt Followup: rt - With: Abdirashid Carias MD - When: 2 - 3 days - Reason: Discharge Instructions: - Discharge Summary Sheet rt - Nonspecific Chest Pain, Adult rt Forms: - Medication Reconciliation Form rt - Thank You Letter rt - Antibiotic Education rt - Prescription Opioid Use rt - Patient Portal Instructions rt Signatures: Dispatcher [employer] Li Gaines, RN AGNIESZKA iw Jen Canchola RN RN kd3 Yung Riley MD MD rt
[2023-05-29 00:51] VITALS: TEMP 98.4
[2023-05-29 01:01] VITALS: O2SAT 95
[2023-05-29 01:02] VITALS: BP 135/95
--- NOTE | 2023-06-02 13:19 | EKG ---
Test Date: 2023-05-28 Test Time: 21:16:22 Filling Operator: RV MEASUREMENT RESULTS: Intervals: Rate: 119 [place]: 138 QRSD: 102 QT: 330 QTc: 464 [place]: P: 39 [place]: 138 QRS: -58 T: 37 INTERPRETIVE STATEMENTS: Sinus tachycardia Left anterior fascicular block Abnormal ECG Compared to ECG 12/18/2022 10:49:14 Left anterior fascicular block now present Sinus rhythm no longer present Right superior axis no longer present ST (T wave) deviation no longer present Electronically Signed On 06-02-23 13:12:30 CDT by Abdirashid Carias
== END 2023-05-29 00:35 | disposition home or self-care (01) ==
LOC: ER 20:58
DX: R07.9 Chest pain, unspecified (principal); T43.625A Adverse effect of amphetamines, initial encounter
CPT/HCPCS: 36415; 71045; 80048; 80076; 83735; 83880; 84443; 84484; 85025; 85379; 93005; 96361; 96374; 99285; J7030

== ENCOUNTER 2023-05-31 21:49 | Emergency (ER) | payer SELFPAY ==
--- OUTSIDE RECORDS SUMMARY | 2023-05-31 21:53 | XMS REPORT | Continuity of Care Document ---
:1980 Author Organization [facility] t Address [address] [place] [address] Care Team Providers Name Role Phone Citlali Yin RN Attending Clinician Unavailable Ginny Rivera MD Attending Clinician GINNY RIVERA Attending Clinician Unavailable CARROL RIDLEY Attending Clinician Unavailable GINNY RIVERA Admitting Clinician Unavailable Problems Condition Condition Condition Status Onset Resolution Last Treating Co mments Source Name Details Category Date Date Treatment Clinician Date STEMI (ST STEMI (ST Disease Recurre [facility] elevation elevation nce 03-03 [facility] myocardial myocardial 00:00: Me dical infarction infarction 00 Ce nter ) ) Allergies, Adverse Reactions, Alerts Allergy Allergy Status Severity Reaction(s) Onset Inactive Treating Comm ents Source Name Type Date Date Clinician NO KNOWN Allergy Active [facility] Social History Social Habit Start Date Stop Date Quantity Comments Source Sex Assigned At [address] [facility] Medic[facility] Ordered Filled Start Stop Current Ordering Indication Dosage Frequency Signature Comments Components Source Medication Medication Date Date Medication? Clinician (SIG) Name Name amLODIPine 2023- Yes 5mg QD Take [address] [facility] (NORVASC) 5 03-04 05-08 tablet (5 Diana kes MG tablet 00:00: 23:59 mg total) Me dical 00 :00 by mouth Center in the morning. atorvastati 2023- Yes 40mg QD Take [address] [facility] n (LIPITOR) 5-08 tablet (40 L ukes 40 MG 00:00: 23:59 mg total) Medica l tablet 00 :00 by mouth Center in the morning. aspirin 81 2023- Yes 81mg QD Take [address] [facility] [address] [facility] EC 03-04-08 tablet (81 [facility] tablet 00:00: 23:59 mg total) Medic al 00 :00 by mouth Center in the morning. clopidogreL 2023- Yes 75mg QD Take [address] [facility] (PLAVIX) 75 03-04-08 tablet (75 L ukes mg tablet 00:00: 23:59 mg total) Me dical 00 :00 by mouth Center in the morning. . amLODIPine 2023- Yes 5mg QD Take [address] [facility] [address] (NORVASC) 5 03-04-08 tablet (5 Diana kes MG tablet 00:00: 23:59 mg total) Me dical 00 :00 by mouth Center in the morning. atorvastati 2023- Yes 40mg QD Take [address] [facility] (LIPITOR) 03-04-08 tablet (40 L ukes 40 MG 00:00: 23:59 mg total) Medica l tablet 00 :00 by mouth Center in the morning. aspirin 81 2023- Yes 81mg QD Take [address] [facility] [address] MG EC 03-04-08 tablet (81 [facility] tablet 00:00: 23:59 mg total) Medic al 00 :00 by mouth Center in the morning. clopidogreL 2023- Yes 75mg QD Take [address] [facility] [address] (PLAVIX) 75 03-04 05-08 tablet (75 L ukes mg tablet 00:00: [...] kg Systolic blood 2023-03-04 19:00:00 109 mm[Hg] [facility] Diastolic blood 2023-03-04 19:00:00 58 mm[Hg] [facility] Heart rate 2023-03-04 19:00:00 88 /min [facility] Body temperature 2023-03-04 19:00:00 37.11 [facility] Respiratory rate 2023-03-04 19:00:00 18 /[facility] Oxygen saturation in 2023-03-04 19:00:00 94 /min [facility] Arterial blood by Medical Ce nter Pulse oximetry BMI 2023-03-03 12:14:00 26.63 kg/m2 [facility] Body height 2023-03-03 12:14:00 165.1 cm [facility] Body weight 2023-03-03 12:14:00 72.576 kg [facility] Procedures Procedure Date / Time Performed Performing Clinician [facility] e 2D ECHO W/ DOPPLER 2023-03-04 12:28:46 Miguel [facility] (CW/PW/COLOR) [facility] LIPID PANEL 2023-03-04 04:28:00 Ginny Rivera [facility] TSH/FREE T4 IF INDICATED 2023-03-04 04:28:00 Ginny Rivera [facility] BASIC METABOLIC PANEL 2023-03-03 17:31:00 [facility] CBC (HEMOGRAM ONLY) 2023-03-03 17:31:00 [facility] B-[facility] NATRIURETIC 2023-03-03 17:31:[address] [facility] FACTOR (BNP) [facility] HIGH SENSITIVITY 2023-03-03 17:31:00 Destiny Mcgrath [facility] St Nafisa es TROPONIN I [facility] PROTHROMBIN TIME/INR 2023-03-03 17:31:00 Destiny Mcgrath [facility] LIPID PANEL 2023-03-03 17:31:00 Destiny Mcgrath [facility] St ke [facility] HEMOGLOBIN A1C 2023-03-03 17:31:00 Destiny Mcgrath [facility] XR CHEST 1 VIEW PORTABLE 2023-03-03 15:43:00 Destiny Mcgrath [facility] / BEDSIDE [facility] CATHETERIZATION, HEART, 2023-03-03 12:08:00 Ginny Rivera [facility] LEFT, WITH PERCUTANEOUS [facility] CORONARY INTERVENTION VASCULAR DIAGRAM -SCAN 2023-03-03 00:00:00 Provider, Dipak [facility] CARDIAC CATH REPORT - 2023-03-03 00:00:00 Provider, Dipak [facility] SCAN Scanning [facility] EKG-SCANNED 2023-03-03 00:00:00 [facility] Plan of Care Planned Activity Planned Date Details Comments Source Future Scheduled 2026-03-04 Lipid panel (procedure) [facility] Test 00:00:00 [code = 40734063] Medical Ce nter Future Scheduled 2026-03-04 Lipid panel (procedure) [facility] 00:00:00 [code = 26054770] Medical Ce nter Future Scheduled 2023-06-27 Influenza Vaccine (#1) [facility] 00:00:00 [code = Influenza Vaccine Me dical Center (#1)] Future Scheduled 2023-06-27 Influenza Vaccine (#1) [facility] 00:00:00 [code = Influenza Vaccine Me dical Center (#1)] Future Scheduled 2022-10-[address] [facility] Test 00:00:00 (12+) [code = DEPRESSION Med ical Center SCREENING (12+)] Future Scheduled 2022-10-[address] [facility] Test 00:00:00 (12+) [code = DEPRESSION Med ical Center SCREENING (12+)] Future Scheduled 1998 DTAP/TDAP/TD VACCINES ([address] [facility] Test 00:00:00 - Tdap) [code = Medical Cent er DTAP/TDAP/TD VACCINES (1 - Tdap)] Future Scheduled 1998 DTAP/TDAP/TD VACCINES ([address] [facility] Test 00:00:00 - Tdap) [code = Medical Cent er DTAP/TDAP/TD VACCINES (1 - Tdap)] Future Scheduled 1997 HEPATITIS C SCREENING [facility] 00:00:00 [code = HEPATITIS C Medical Center SCREENING] Future Scheduled 1997 HEPATITIS C [facility]CRE[facility]ING [facility] 00:00:00 [code = HEPATITIS C Medical Center SCREENING] Future Scheduled [address] Human immunodeficiency [facility] 00:00:00 virus screening Medical Cent er (procedure) [code = 511794287] Future Scheduled [address] [facility] 00:00:00 virus screening Medical Cent er (procedure) [code = 838331623] Future Scheduled [address] [facility] Test 00:00:00 Counseling and Screening Med ical Center (12+) [code = Tobacco Cessation Counseling and Screening (12+)] Future Scheduled [address] [facility] Test 00:00:00 Counseling and Screening Med ical Center (12+) [code = Tobacco Cessation Counseling and Screening (12+)] Future Scheduled 1980-06-01 COVID-19 VACCINE (#1) [facility] 00:00:00 [code = COVID-19 VACCINE Med ical Center (#1)] Future Scheduled 1980-06-01 COVID-19 VACCINE (#1) [facility] 00:00:00 [code = COVID-19 VACCINE Med ical Center (#1)] Encounters Start End Encounter Admission Attending Care Care Encounter Source Date/Time Date/Time Type Type Clinicians Facility Department ID 2023-03-12 2023-03-12 Kulwant Yin [facility] [id number] 00:[facility]00 00:00:00 marcela [facility] 2023-03-12 2023-03-12 Kulwant Yin [facility] [id number] 00:00:00 00:00:00 ion Citlali [facility] 2023-03-03 2023-03-04 Hospital ER Miguel, [facility] [id number] 17:34:00 19:46:00 Encounter [facility] 2023-03-03 2023-03-04 [id number] [facility] 17:34:00 19:46:00 [facility] 2023-03-03 2023-03-04 [facility] [id number] 17:34:00 19:46:00 Encounter [facility] 2023-03-03 2023-03-03 Surgery [facility] [id number] 12:35:00 14:25:00 [facility] 2023-03-03 2023-03-03 Surgery [facility] [id number] 12:35:00 14:25:00 [facility] 2023-03-03 2023-03-03 Emergency ER [facility] [id number] [place] 09:09:00 11:35:00 CARROL -[id number] [facility] 2023-03-03 2023-03-03 emergency [id number] 09:09:00 11:35:00 [id number] Results Test Description Test Time Test Comments Results Result Sour e Comments 2D Echo 2023-03-[address] [facility] W/Doppler(CW/PW/C 15:58:51 FractionSLE ECHO Medical olor) [facility] 2D Echo 2023-03-[address] [facility] W/Doppler(CW/PW/C 15:58:51 FractionSLE ECHO Medical olor) [facility] HEMOGLOBIN A1C 2023-03-04 10:27:40 Test Item Value Reference Range Interpretation Comme nts HEMOGLOBIN A1C ELECTROPHORESIS 4.8 % See_Comment [Automated message] The system ([employer]) (test code = 3811) which generated this result transmitted ref erence range: <=5.6%. The ref erence range was not used to int erpret this result as normal/abnor mal. "The A1c is measured using a NGSP-certified method. HbA1c value equal to or greater than 6.5% as thediagnosis cutoff for diabetes. An HbA1c value of 5.7- 6.4% indicates increased risk for diabetes (prediabetes)."Occupational Health Coordinator ID - ADM TSH/FREE T4 IF [id number] 05:21:48 Test Item Value Reference Range Interpretation Comments THYROID STIMULATING HORMONE 1.963 uIU/mL 0.350-4.940 ([employer]) (test code = 772) Occupational Health Coordinator ID - MMLIPID [id number] 05:09:12 Test Item Value Reference Range Interpretation Comments TRIGLYCERIDES ([employer]) 78 mg/dL Speci men slightly (test code = 540) hemolyzed CHOLESTEROL ([employer]) 150 mg/dL Specime n slightly (test code = 631) hemolyzed HDL CHOLESTEROL ([employer]) 30 mg/dL (test code = 976) LDL CHOLESTEROL 104 mg/dL CALCULATED ([employer]) (test code = 633) Triglyceride Reference Range: Low Risk <150 Borderline 150-199 High Risk 200- 499 Very High Risk >=500Cholesterol Reference Range: Low Risk <200 Borderline 200-239 High Risk >240HDL Cholesterol Reference Range: Low Risk >=60 High Risk <40LDL Cholesterol Reference Range: Optimal <100 Near Optimal 100-129 Borderline 130-159 High 160-189 Very High >=190 Occupational Health Coordinator ID - MMSpecimen slightly ictericRAD, CHEST, 1 VIEW, NON [id number] 21:22:00 Reason for exam:->[facility]I [facility] CENTERName: SHAZIA SANTOS : 1980 Sex: MFINAL REPORT TECHNIQUE: Frontal [...] I (test 13 pg/ml <=35 code = 0941981) Occupational Health Coordinator ID - BSThe MEMBERSHIP ASSISTANT STAT High Sensitivity Troponin-I results should be used in conjunctionwith other diagnostic information such as ECG, clinical observations and information, and patient symptoms to aid in the diagnosis of AK.B-TYPE NATRIURETIC FACTOR (BNP)2023-03-03 18:07:04 Test Item Value Reference Range Interpretation Comments B-TYPE NATRIURETIC PEPTIDE (BEAKER) < pg/mL 0-100 (test code = 700) Occupational Health Coordinator ID - BSLIPID [id number] 18:00:50 Test Item Value Reference Range Interpretation [...] Borderline 130-159 High 160-189 Very High >=190 Occupational Health Coordinator ID - BSSpecimen slightly ictericBASIC METABOLIC [id number] 18:00:49 Test Item Value Reference Range Interpretation [...] De scription 1092) sq m Result G1 Norm al or high >=90 G2 Mildly decreased 60-89 G3a Mildl y to moderately 45-5 9 G3b Moderately to s everely 30-44 G4 Severl y decreased 15-29 G5 Kidne y failure <15Reported eGF R is based on the CKD-EPI 2020 equation that d oes not use a race coefficientEsti mated GFR is not as accur ate as Creatinine Gauri mcdonough in predicting glom erular filtration rate . Estimated GFR is not appl icable for dialysis patien ts Occupational Health Coordinator ID - BSSpecimen slightly ictericPROTHROMBIN TIME/[id number] 17:58:45 Test Item Value Reference Range Interpretation [...]
--- NOTE | 2023-05-31 22:13 | RAD REPORT ---
EXAM DESCRIPTION: RAD - Chest Single View - 05/31/2023 10:05 pm CLINICAL HISTORY: CHEST PAIN Chest pain. COMPARISON: <Comparisons> FINDINGS: Portable technique limits examination quality. The lungs are grossly clear. The heart is normal in size. No displaced fractures. IMPRESSION: No acute intrathoracic process suspected.
[2023-05-31 22:14] LABS: Absolute Lymphocytes (CBC) 0.6 K/uL (0.7-4.9); Hematocrit 57.3 % (39.6-49.0); MPV 7.7 fL (7.6-11.3); RBC Red Blood Cell Count 6.16 M/uL (4.33-5.43)
[2023-05-31 22:16] LABS: Protime INR 1.05
[2023-05-31 22:35] LABS: Albumin 3.7 g/dL (3.4-5.0); Bilirubin Direct 0.3 mg/dL (0-0.2); Bilirubin Indirect, Calculated 1.4 mg/dL (0.2-0.8); Bilirubin Total 1.7 mg/dL (0.2-1.0); Magnesium 2.2 mg/dL (1.6-2.4); Potassium 3.6 mEq/L (3.5-5.1); Protein, Total 7.2 g/dL (6.4-8.2); Thyroid Stimulating Hormone 2.66 uIU/mL (0.358-3.740); Troponin High Sensitivity 6.8 pg/mL (<58.9)
[2023-06-01 00:01] LABS: Specific Gravity > 1.030 (1.005-1.030); Urine Bacteria None Seen /HPF (<20); Urine Bilirubin NEGATIVE (Negative); Urine Blood 1+ (Negative); Urine Clarity Clear (Clear); Urine Color Yellow (Yellow); Urine Glucose 3+ (Negative); Urine Mucus 1+ /HPF (None Seen); Urine Protein 1+ (Negative); Urine Urobilinogen Normal (Normal); Urine pH 5.5 (5.0-7.0)
[2023-06-01 00:14] LABS: Barbiturates NEGATIVE (NEGATIVE); Benzodiazepines NEGATIVE (NEGATIVE); Cocaine NEGATIVE (NEGATIVE); METHAMPHETAM POSITIVE (NEGATIVE); Methadone NEGATIVE (NEGATIVE); Opiates NEGATIVE (NEGATIVE); Phencyclidine NEGATIVE (NEGATIVE); THC Cannibis NEGATIVE (NEGATIVE)
--- NOTE | 2023-06-01 00:18 | EDPHYS ---
Physician Documentation [facility] Name: Fidel Santos Age: 42 yrs Sex: Male : 1980 Arrival Date: 05/31/2023 Time: 21:49 Bed 18 Private MD: ED Physician Gagandeep Quesada HPI: 05/31 21:55 This 42 yrs old Male presents to ER via Unassigned with complaints of chest sb4 pain. 21:56 Onset: The symptoms/episode began/occurred just prior to arrival. The patient has sb4 experienced a previous episode, approximately 3 days ago. The patient has been recently seen at the [facility] Emergency Department, this week. 23:36 patient states that he took caffeine pills this afternoon for energy. he was taking a sb4 shower this evening when he states he started experiencing a pain that felt like a "shock" in the left side of his chest. he states the pain has since resolved. Historical: - Allergies: 22:06 No Known Allergies; ha1 - PMHx: 22:06 Anxiety; Irregular heart rate; ha1 - Immunization history:: Adult Immunizations unknown. - Social history:: Smoking status: Patient denies any tobacco usage or history of. ROS: 21:56 Constitutional: Negative for fever, chills, and weight loss, Eyes: Negative for injury, sb4 pain, redness, and discharge, ENT: Negative for injury, pain, and discharge, Respiratory: Negative for shortness of breath, cough, wheezing, and pleuritic chest pain, Abdomen/GI: Negative for abdominal pain, nausea, vomiting, diarrhea, and constipation, Back: Negative for injury and pain, MS/Extremity: Negative for injury and deformity, Skin: Negative for injury, rash, and discoloration. 21:56 Cardiovascular: Positive for chest pain, Negative for edema, orthopnea, palpitations. 21:56 All other systems are negative. Exam: 23:36 Constitutional: This is a well developed, well nourished patient who is awake, alert, sb4 and in no acute distress. Head/Face: Normocephalic, atraumatic. Eyes: Extra-ocular motions intact. Periorbital areas with no swelling, redness, or edema. ENT: Mucous membranes moist. Respiratory: Lungs have equal breath sounds bilaterally, clear to auscultation and percussion. No rales, rhonchi or wheezes noted. No increased work of breathing, no retractions or nasal flaring. Abdomen/GI: Soft, non-tender, no distension. Skin: Warm, dry with normal turgor. Normal color with no rashes, no lesions, and no evidence of cellulitis. MS/ Extremity: Pulses equal, no cyanosis. Neurovascular intact. Full, normal range of motion. 23:36 Cardiovascular: Rate: tachycardic, Rhythm: irregularly irregular, Pulses: no pulse deficits are appreciated, Heart sounds: normal, Edema: is not appreciated. Vital Signs: 21:58 BP 130 / 90; Pulse 120; Resp 20; Temp 98; Pulse Ox 100% ; bp 22:04 BP 127 / 98; Pulse 109; Resp 20; Temp 98.1(O); Pulse Ox 100% on R/A; Weight 72.57 kg; ha1 Height 5 ft. 6 in. ; 23:00 BP 123 / 100; Pulse 85; Resp 18 S; Pulse Ox 97% on R/A; ha1 06/01 00:00 BP 129 / 104; Pulse 85; Resp 18 S; Pulse Ox 97% on R/A; ha1 00:27 BP 125 / 95; Pulse 82; Resp 17 S; Pulse Ox 98% on R/A; 1 05/31 22:04 Body Mass Index 25.82 (72.57 kg, 167.64 cm) [facility] MDM: 05/31 21:53 Patient medically screened. sb4 23:36 Differential Diagnosis afib, aflutter, thyroid abnormality, drug intoxication, adverse sb4 effect of caffeine, unstable angina. Data reviewed: vital signs, nurses notes, EMS record, lab test result(s), EKG, radiologic studies, and as a result, I will discharge patient. Consideration of Admission/Observation Escalation of care including admission/observation considered. 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 Special discussion: Based on the patient's history, exam, and Dx evaluation, there is no indication for emergent intervention or inpatient Tx. It is understood by the patient/guardian that if the Sx's persist or worsen they need to return immediately for re-evaluation. 23:54 Scoring Tools HEART Score: History: ECG: Age: Risk Factors: No Risk Factors Known (0), sb4 Troponin: Total Score = 0. 06/01 00:16 ED course: patient is methamphetamine positive and has been ingesting excessive sb4 caffeine. he has also not been taking his anxiety medication. chest pain has now resolved. have instructed patient to stop ingesting excessive caffeine. he denies current drug abuse. he is to follow up with cardiology to further evaluate his atrial flutter. 05/31 21:54 Order name: Basic Metabolic Panel; Complete Time: 22:36 sb4 05/31 21:54 Order name: CBC with Diff; Complete Time: 22:25 sb4 05/31 21:54 Order name: D-Dimer; Complete Time: 22:25 sb4 05/31 21:54 Order name: LFT's; Complete Time: 22:36 sb4 05/31 21:54 Order name: Magnesium; Complete Time: 22:36 sb4 05/31 21:54 Order name: NT PRO-BNP; Complete Time: 22:36 sb4 05/31 21:54 Order name: PT-INR; Complete Time: 22:25 sb4 05/31 21:54 Order name: Troponin HS; Complete Time: 22:36 sb4 05/31 21:54 Order name: TSH; Complete Time: 22:36 sb4 05/31 21:54 Order name: Urinalysis w/ reflexes; Complete Time: 00:02 sb4 05/31 21:54 Order name: UDS; Complete Time: 00:16 sb4 05/31 21:54 Order name: XRAY Chest (1 view); Complete Time: 22:16 sb4 05/31 21:54 Order name: EKG; Complete Time: 21:55 sb4 05/31 21:54 Order name: Cardiac monitoring; Complete Time: 22:05 sb4 05/31 21:54 Order name: EKG - Nurse/Tech; Complete Time: 22:05 sb4 05/31 21:54 Order name: IV Saline Lock; Complete Time: 22:05 sb4 05/31 21:54 Order name: Labs collected and sent; Complete Time: 22:05 sb4 05/31 21:54 Order name: O2 Per Protocol; Complete Time: 22:05 sb4 05/31 21:54 Order name: O2 Sat Monitoring; Complete Time: 22:05 sb4 EC/05 21:58 Rate is 113 beats/min. Rhythm is irregularly irregular, A flutter. QRS interval is sb4 normal at 88 msec. QT interval is normal at 332 msec. T waves are Normal. No ST changes noted. Clinical impression: No evidence of ischemia. Interpreted by me. Reviewed by me. Administered Medications: No medications were administered Disposition: 06/01 02:40 Co-signature as Attending Physician, Gagandeep Quesada MD I agree with the assessment sp4 and plan of care. I reviewed the patient's care provided by the Advanced Practice Provider and agree with the diagnosis and treatment plan. Disposition Summary: 06/01/23 00:18 Discharge Ordered Location: Home sb4 Problem: an acute exacerbation sb4 Symptoms: have improved sb4 Condition: Stable sb4 Diagnosis - Unspecified atrial flutter sb4 - Adverse effect of amphetamines sb4 Followup: sb4 - With: - When: 2 - 3 days - Reason: Recheck today's complaints, Continuance of care, Re-evaluation by your physician Discharge Instructions: - Discharge Summary Sheet sb4 - Atrial Flutter sb4 - Caffeine Withdrawal sb4 Forms: - Medication Reconciliation Form sb4 - Thank You Letter sb4 - Antibiotic Education sb4 - Prescription Opioid Use sb4 - Patient Portal Instructions sb4 Signatures: Dispatcher [employer] Rupinder Su, RN RN ha1 Reyna Christensen PAMichael PAMichael sb4 Gagandeep Quesada MD MD sp4
--- NOTE | 2023-06-01 00:18 | ER ---
Nurse's Notes [facility] Name: Fidel Santos Age: 42 yrs Sex: Male : 1980 Arrival Date: 05/31/2023 Time: 21:49 Bed 18 Private MD: Diagnosis: Unspecified atrial flutter;Adverse effect of amphetamines Presentation: 05/31 21:58 Chief complaint: EMS states: CHEST PAIN AND ANXIETY AFTER TAKING "REDLINE" ENERGY bp PILLS, H/O SAME. Coronavirus screen: At this time, the client does not indicate any symptoms associated with coronavirus-19. Ebola Screen: No symptoms or risks identified at this time. Initial Sepsis Screen: Does the patient meet any 2 criteria? HR > 90 bpm. No. Patient's initial sepsis screen is negative. Does the patient have a suspected source of infection? No. Patient's initial sepsis screen is negative. Risk Assessment: Do you want to hurt yourself or someone else? Patient reports no desire to harm self or others. Onset of symptoms was May 31, 2023. Care prior to arrival: IV initiated. 20 GA, in the right antecubital area. 21:58 Method Of Arrival: EMS: [facility] bp 21:58 Acuity: NEHEMIAH 3 bp Triage Assessment: 21:59 General: Appears in no apparent distress. Behavior is cooperative, appropriate for age, bp anxious. Pain: Complains of pain in chest. EENT: No deficits noted. Neuro: Level of Consciousness is awake, alert, obeys commands, Oriented to Appropriate for age. Cardiovascular: Rhythm is sinus tachycardia. Respiratory: No deficits noted. GI: No signs and/or symptoms were reported involving the gastrointestinal system. : No signs and/or symptoms were reported regarding the genitourinary system. Derm: No deficits noted. Musculoskeletal: No deficits noted. Historical: - Allergies: 22:06 No Known Allergies; ha1 - PMHx: 22:06 Anxiety; Irregular heart rate; ha1 - Immunization history:: Adult Immunizations unknown. - Social history:: Smoking status: Patient denies any tobacco usage or history of. Screenin:51 [facility] ED Fall Risk Assessment (Adult) History of falling in the last 3 months, ha1 including since admission No falls in past 3 months (0 pts) Confusion or Disorientation No (0 pts) Intoxicated or Sedated No (0 pts) Impaired Gait No (0 pts) Mobility Assist Device Used No (0 pt) Score/Fall Risk Level 0 - 2 = Low Risk Oriented to surroundings, Maintained a safe environment, Educated pt \\T\\ family on fall prevention, incl call for assistance when getting out of bed. Abuse screen: Denies threats or abuse. Denies injuries from another. Nutritional screening: No deficits noted. Tuberculosis screening: No symptoms or risk factors identified. Assessment: 21:51 General: Appears uncomfortable, Behavior is calm, cooperative. Pain: Complains of pain ha1 in chest Pain does not radiate. Pain currently is 7 out of 10 on a pain scale. Neuro: Level of Consciousness is awake, alert, obeys commands, Oriented to person, place, time, situation. Cardiovascular: Capillary refill < 3 seconds Rhythm is atrial flutter. Respiratory: Airway is patent Respiratory effort is even, unlabored, Respiratory pattern is regular, symmetrical, Ventilator assessment:. GI: No signs and/or symptoms were reported involving the gastrointestinal system. Abdomen is flat, non-distended. Derm: Skin is diaphoretic, Skin is normal. Musculoskeletal: Circulation, motion, and sensation intact. Range of motion: intact in all extremities. 22:50 Reassessment: Patient and/or family updated on plan of care and expected duration. Pain ha1 level reassessed. Patient is alert, oriented x 3, equal unlabored respirations, skin warm/dry/pink. 23:50 Reassessment: Patient and/or family updated on plan of care and expected duration. Pain ha1 level reassessed. Patient is alert, oriented x 3, equal unlabored respirations, skin warm/dry/pink. Vital Signs: 21:58 BP 130 / 90; Pulse 120; Resp 20; Temp 98; Pulse Ox 100% ; bp 22:04 BP 127 / 98; Pulse 109; Resp 20; Temp 98.1(O); Pulse Ox 100% on R/A; Weight 72.57 kg; ha1 Height 5 ft. 6 in. ; 23:00 BP 123 / 100; Pulse 85; Resp 18 S; Pulse Ox 97% on R/A; ha1 0806 00:00 BP 129 / 104; Pulse 85; Resp 18 S; Pulse Ox 97% on R/A; ha1 00:27 BP 125 / 95; Pulse 82; Resp 17 S; Pulse Ox 98% on R/A; ha1 05/31 22:04 Body Mass Index 25.82 (72.57 kg, 167.64 cm) ha1 ED Course: 05/31 21:51 Patient arrived in ED. rv1 21:51 Patient has correct armband on for positive identification. Placed in gown. Bed in low ha1 position. Call light in reach. Side rails up X 1. 21:53 Reyna Christensen PA-C is PHCP. sb4 21:53 Gagandeep Quesada MD is Attending Physician. sb4 21:59 Triage completed. bp 21:59 Arm band placed on. bp 22:01 Rupinder Gusman, RN is Primary Nurse. ha1 22:06 TSH Sent. wm 22:06 Basic Metabolic Panel Sent. wm 22:06 CBC with Diff Sent. wm 22:06 D-Dimer Sent. wm 22:06 LFT's Sent. wm 22:06 Magnesium Sent. wm 22:06 NT PRO-BNP Sent. wm 22:06 PT-INR Sent. wm 22:06 Troponin HS Sent. wm 22:07 XRAY Chest (1 view) In Process Unspecified. EDMS 08 00:17 Abdirashid Carias MD is Referral Physician. sb4 00:28 No provider procedures requiring assistance completed. IV discontinued, intact, ha1 bleeding controlled, No redness/swelling at site. Pressure dressing applied. 00:29 Provided Education on: follow ups. ha1 Administered Medications: No medications were administered Medication: 00:13 VIS not applicable for this client. ha1 Outcome: 00:18 Discharge ordered by . sb4 00:28 Discharged to home ambulatory. ha1 00:28 Condition: stable 00:28 Discharge instructions given to patient, Instructed on discharge instructions, follow up and referral plans. Demonstrated understanding of instructions, follow-up care. 00:29 Patient left the ED. ha1 Signatures: Dispatcher [employer] EDDE Farhad Antoine, Yelitza Bautista RN Rupinder Gusman, AGNIESZKA RN ha1 Reyna Christnesen PA-C PA-C sb4 Sandra Kaiser rv1
[2023-06-01 00:36] VITALS: TEMP 98.1
[2023-06-01 00:40] VITALS: BP 125/95; O2SAT 98
--- NOTE | 2023-06-02 13:04 | EKG ---
Test Date: 2023-05-31 Test Time: 21:55:24 Spool Fixer: BP MEASUREMENT RESULTS: Intervals: Rate: 113 [place]: QRSD: 88 QT: 332 QTc: 455 [place]: P: 20 [place]: QRS: 53 T: -8 INTERPRETIVE STATEMENTS: Sinus tachycardia Abnormal ECG Electronically Signed On 06-02-23 13:03:17 CDT by Abdirashid Carias
== END 2023-06-01 00:29 | disposition home or self-care (01) ==
LOC: ER 21:49
DX: I48.91 Unspecified atrial fibrillation (principal); T43.625A Adverse effect of amphetamines, initial encounter
CPT/HCPCS: 36415; 71045; 80048; 80076; 80307; 81001; 83735; 83880; 84443; 84484; 85025; 85379; 85610; 93005; 99284